=== PATIENT | female | born 1960 | race Caucasian/White ===

== ENCOUNTER → 2021-07-31 | Outpatient (CLI) | payer OTHER ==
[~2021-07-31] MED LIST: ALBU90OI61 INH; ANTOXYBENA OT; ASPI81EC; Aspirin EC81 MG; BCOIRO; CEPH500 PO; CITA20 PO; CYCL10 PO; FLUT220OIA INH; HYDACE5 PO; LEVSOD100; LEVSOD125 PO; Lovastatin20 MG PO; ONDA4 PO; PRAV20 PO; PSECHLCR PO; TRAM50 PO
== END | disposition home or self-care (01) ==
LOC: LAB 15:01 → LAB SHORT 15:01
DX: M21.622 Bunionette of left foot (principal); M20.42 Other hammer toe(s) (acquired), left foot; M79.672 Pain in left foot
CPT/HCPCS: 88305

== ENCOUNTER 2021-10-30 11:07 | Emergency (ER) | payer OTHER ==
[~2021-10-30] VITALS: Ht 165.1 cm; Wt 90.7 kg
[2021-10-30 11:39] LABS: BASOPHILS ABSOLUTE AUTO 0.06 K/mm3 (0.00-0.23); BASOPHILS PERCENT AUTO 1 % (0-2); EOSINOPHILS ABSOLUTE AUTO 0.35 K/mm3 (0.00-0.68); EOSINOPHILS PERCENT AUTO 4 % (0-6); Hematocrit 39.8 % (33.0-51.0); IMMATURE GRAN ABSOLUTE AUTO 0.01 K/mm3 (0.00-0.10); IMMATURE GRAN PERCENT AUTO 0 % (0-1); LYMPHOCYTES ABSOLUTE AUTO 2.72 K/mm3 (0.84-5.20); LYMPHOCYTES PERCENT AUTO 30 % (21-46); MONOCYTES ABSOLUTE AUTO 0.68 K/mm3 (0.16-1.47); MONOCYTES PERCENT AUTO 8 % (4-13); Mean Corpuscular HGB Conc 32.7 g/dL (31.5-36.5); Mean Corpuscular Volume 92 fL (80-100); Mean Platelet Volume 10.4 fL (9.1-12.4); NEUTROPHILS ABSOLUTE AUTO 5.14 K/mm3 (1.96-9.15); NEUTROPHILS PERCENT AUTO 57 % (41-73); Platelet Count 245 K/mm3 (150-400); RDW Coefficient Variation 12.4 % (11.7-14.2); RDW Standard Deviation 42.1 fL (35.1-46.3); Red Blood Cell Count 4.34 M/mm3 (3.80-5.20); White Blood Cell Count 8.96 K/mm3 (4.00-11.30)
[2021-10-30 11:58] LABS: Alanine Aminotransfer (ALT/SGP 19 U/L (12-78); Albumin, Blood 3.3 g/dL (3.4-5.0); Albumin/Globulin Ratio 0.9 (0.8-1.8); Alk Phos 91 U/L (50-136); Anion Gap 6 mmol/L (6-16); Aspartate Aminotrans (AST/SGOT 10 U/L (12-37); Bilirubin, Total 0.2 mg/dL (0.1-1.0); Blood Urea Nitrogen 17 mg/dL (8-24); Bun/Creatinine Ratio 21.5 (12.0-20.0); CO2, Blood 23 mmol/L (21-32); Calcium, Blood 8.7 mg/dL (8.5-10.1); Chloride, Blood 110 mmol/L (98-108); Creatinine, Blood 0.79 mg/dL (0.40-1.00); Globulin, Blood 3.6 g/dL (2.2-4.0); Glomerular Filtration Rate >60 (60-); Glucose, Blood 141 mg/dL (70-99); Potassium, Blood 3.8 mmol/L (3.5-5.5); Sodium, Blood 139 mmol/L (136-145); Total Protein, Blood 6.9 g/dL (6.4-8.2)
[2021-10-30] MEDS ORDERED: EUTHYROX125 MC1 PO (12:01)
[2021-10-30] MEDS ORDERED: TOPI25 PO (12:02)
[2021-10-30] MEDS ORDERED: LOVASTATIN20 MG PO (12:02)
[2021-10-30] MEDS ORDERED: CITALOPRAM HBR PO (12:02)
== END 2021-10-30 13:50 | disposition home or self-care (01) ==
LOC: ER 11:07
PROVIDERS: Emergency Medicine
DX: M54.89 Other dorsalgia (principal); R07.9 Chest pain, unspecified; F32.A Depression, unspecified; Z79.82 Long term (current) use of aspirin; Z79.899 Other long term (current) drug therapy; Z86.718 Personal history of other venous thrombosis and embolism
CPT/HCPCS: 71275; 80053; 83690; 84484; 85025; 85379; 93005; 93010; J2405; Q9967

== ENCOUNTER → 2025-01-29 | Outpatient (CLI) | payer OTHER ==
[~2025-01-29] MED LIST changes: +CITALOPRAM HBR PO; +EUTHYROX125 MC1 PO; +LOVASTATIN20 MG PO; +TOPI25 PO
== END ==
LOC: LAB SHORT 10:59 → LAB 10:59
DX: N85.8 Other specified noninflammatory disorders of uterus (principal); R93.89 Abnormal findings on diagnostic imaging of other specified body structures
CPT/HCPCS: 88305